=== PATIENT | female | born 1980 | race African-American/Black ===

== ENCOUNTER 2016-10-26 05:18 | Emergency (ER) | payer MEDICARE, MEDICAID ==
[2016-10-26] MEDS ORDERED: Ondansetron HCl/PF 4 MG/2 ML Vial ONE ×2 (05:49→07:36)
[2016-10-26 05:53] LABS: #Basophils 0.1 thou/uL (0.0-0.2); #Lymphocytes 0.8 thou/uL (1.20-3.40); #Monocytes 0.4 thou/uL (0.11-0.59); #Neutrophils 6.2 thou/uL (1.40-6.50); %Basophils 0.9 % (0.0-1.0); %Eosinophils 0.2 % (0.0-10.0); %Lymphocytes 10.5 % (21.0-51.0); %Monocytes 4.8 % (0.0-10.0); %Neutrophils 83.5 % (42.0-75.0); Mean Corpuscular HGB CONC 30.5 g/dL (32.0-36.0); Mean Corpuscular Hemoglobin 29.1 pg (27.0-31.0); Mean Corpuscular Volume 95.4 fl (81.0-99.0); Mean Platelet Volume 7.4 fL (7.4-10.4); Platelet Count 216 thou/uL (130-400); RBC Distribution Width 13.6 % (11.5-14.5); Red Blood Cell (RBC) Count 3.77 mill/uL (4.20-5.40); White Blood Cell (WBC) Count 7.4 thou/uL (4.8-10.8)
[2016-10-26 06:08] LABS: ALT (SGPT) 6 U/L (0-55); AST (SGOT) 8 U/L (5-34); Albumin 4.1 g/dL (3.5-5.0); Alkaline Phosphatase 77 U/L (40-150); Anion Gap 21 mmol/L (10-20); BUN (Urea Nitrogen) 25 mg/dL (7.0-18.7); Bilirubin, Total 0.6 mg/dL (0.2-1.2); Calc. Creatinine Clearance 0 mL/min (70-130); Carbon Dioxide 19 mmol/L (22-29); Chloride 106 mmol/L (98-107); Estimated GFR-MDRD 37; Globulin 3.1 g/dL (2.4-3.5); Glucose 106 mg/dL (70-105); Lipase 11 U/L (8-78); Potassium 4.4 mmol/L (3.5-5.1); Protein, Total 7.2 g/dL (6.0-8.3); Sodium 142 mmol/L (136-145)
[2016-10-26] MEDS ORDERED: Mag-Al Plus 1200 MG/1200 MG/120 MG/30 ML UDCUP ONE (07:36)
[2016-10-26] MEDS ORDERED: Sodium Chloride 0.9% 100 ML BAG ONE (07:50)
[2016-10-26] MEDS ORDERED: Piperacillin/Tazobactam 3.375 GM VIAL ONE (07:50)
[2016-10-26] MEDS ORDERED: Sodium Chloride 0.9% 1,000 ML BAG ONE (07:50)
== END 2016-10-26 08:00 | disposition home or self-care (01) ==
LOC: MADERS 05:18
DX: N39.0 Urinary tract infection, site not specified (principal); I10 Essential (primary) hypertension
CPT/HCPCS: 36415; 80053; 83690; 85025; 96365; 96375; 96376; J2405; J2543; J7050

== ENCOUNTER 2016-11-02 16:52 | Outpatient (CLI) | payer MEDICARE, MEDICAID ==
[~2016-11-02 16:52] MED LIST: Epoetin (ESRD) 20,000 UNITS/ML ONE
== END 2016-11-02 16:53 | disposition home or self-care (01) ==
LOC: MADLAB 16:52
PROVIDERS: ATTEND Internal Medicine Hematology & Oncology
DX: N39.0 Urinary tract infection, site not specified (principal); I12.9 Hypertensive chronic kidney disease with stage 1 through stage 4 chronic kidney disease, or unspecified chronic kidney disease; N18.3 Chronic kidney disease, stage 3 (moderate); E11.22 Type 2 diabetes mellitus with diabetic chronic kidney disease; D63.1 Anemia in chronic kidney disease; N20.0 Calculus of kidney; Z94.0 Kidney transplant status; Z94.83 Pancreas transplant status; Z79.899 Other long term (current) drug therapy; Z48.22 Encounter for aftercare following kidney transplant
CPT/HCPCS: Q4081

== ENCOUNTER → 2016-11-11 | Outpatient (CLI) | payer MEDICARE, MEDICAID ==
[2016-11-11 14:31] LABS: Hemoglobin 8.3 g/dL (12.0-16.0); Mean Corpuscular HGB CONC 30.7 g/dL (32.0-36.0); Mean Corpuscular Hemoglobin 30.2 pg (27.0-31.0); Mean Corpuscular Volume 98.5 fl (81.0-99.0); Mean Platelet Volume 5.9 fL (7.4-10.4); Platelet Count 286 thou/uL (130-400); Red Blood Cell (RBC) Count 2.75 mill/uL (4.20-5.40); White Blood Cell (WBC) Count 4.3 thou/uL (4.8-10.8)
== END ==
LOC: MADLAB 11:46
PROVIDERS: ATTEND Internal Medicine Hematology & Oncology
DX: N39.0 Urinary tract infection, site not specified (principal); E11.22 Type 2 diabetes mellitus with diabetic chronic kidney disease; I12.9 Hypertensive chronic kidney disease with stage 1 through stage 4 chronic kidney disease, or unspecified chronic kidney disease; N18.3 Chronic kidney disease, stage 3 (moderate); E78.5 Hyperlipidemia, unspecified; D63.1 Anemia in chronic kidney disease; R80.9 Proteinuria, unspecified; Z94.0 Kidney transplant status; Z94.83 Pancreas transplant status; Z79.899 Other long term (current) drug therapy
CPT/HCPCS: 36415; 85027

== ENCOUNTER 2017-02-19 21:29 | Emergency (ER) | payer MEDICARE, MEDICAID ==
[~2017-02-19 21:29] MED LIST changes: -Epoetin (ESRD) 20,000 UNITS/ML ONE; +Sodium Chloride 0.9% 1,000 ML BAG ONE
[2017-02-19] MEDS ORDERED: Diphenoxylate HCl/Atropine Tablet ONE (22:14)
[2017-02-19] MEDS ORDERED: Metoclopramide HCl 10 MG/2 ML VIAL ONE (22:15)
[2017-02-19] MEDS ORDERED: Ondansetron HCl/PF 4 MG/2 ML Vial ONE (22:15)
[2017-02-19] MEDS ORDERED: Ketorolac Tromethamine 30 MG/ML VIAL ONE (22:15)
[2017-02-19 22:20] LABS: Hemoglobin 12.6 g/dL (12.0-16.0); Mean Corpuscular HGB CONC 31.2 g/dL (32.0-36.0); Mean Corpuscular Hemoglobin 30.2 pg (27.0-31.0); Mean Corpuscular Volume 96.9 fl (81.0-99.0); Mean Platelet Volume 6.9 fL (7.4-10.4); Platelet Count 200 thou/uL (130-400); RBC Distribution Width 14.4 % (11.5-14.5); Red Blood Cell (RBC) Count 4.17 mill/uL (4.20-5.40); White Blood Cell (WBC) Count 6.6 thou/uL (4.8-10.8)
[2017-02-19 22:32] LABS: BHCG - Serum Negative (NEGATIVE); Pregs Control Background? CLEAR/WHITE (CLR/WHITE); Pregs Control Bar Appear? YES (CONTROL BAR)
[2017-02-19 22:34] LABS: MDiff Complete? YES; Manual Diff?? YES
[2017-02-19 22:35] LABS: Band 8 % (5-11); Lymphocytes 21 % (21-51); Monocytes 19 % (0-10); Neutrophil 50 % (42-75)
[2017-02-19 22:36] LABS: Anisocytosis SLIGHT = 6-15 cells (100X) (0-5/hpf); PLT Morphology Comment Appears Adequate
[2017-02-19 22:40] LABS: ALT (SGPT) 8 U/L (8-55); AST (SGOT) 13 U/L (5-34); Albumin 3.9 g/dL (3.5-5.0); Alkaline Phosphatase 73 U/L (40-150); Anion Gap 18 mmol/L (10-20); BUN (Urea Nitrogen) 25 mg/dL (7.0-18.7); Calc. Creatinine Clearance 0 mL/min (70-130); Calcium 9.3 mg/dL (7.8-10.44); Carbon Dioxide 19 mmol/L (22-29); Chloride 107 mmol/L (98-107); Estimated GFR-MDRD 32; Globulin 3.5 g/dL (2.4-3.5); Glucose 131 mg/dL (70-105); Potassium 4.2 mmol/L (3.5-5.1); Protein, Total 7.4 g/dL (6.0-8.3); Sodium 140 mmol/L (136-145)
--- NOTE | 2017-02-19 23:15 | RAD ---
PORTABLE CHEST ONE VIEW: Date: 02-19-17 Time: 10:09 p.m. History: Abdominal pain. FINDINGS: Comparison is made with exam of 08-12-12. The heart size is normal. The lungs are expanded without focal areas of consolidation, pneumothorax, or pleural effusions. IMPRESSION: No radiographic evidence of acute cardiopulmonary process. POS: [facility]
--- NOTE | 2017-02-19 23:29 | CT ---
CT ABDOMEN AND PELVIS WITHOUT CONTRAST: History: 36-year-old female with left lower quadrant pain. Nausea. Vomiting. Renal transplant. FINDINGS: Absence of oral and IV contrast limits the sensitivity of the exam for evaluation of solid organs an d bowel. A small hiatal hernia is present. No free air is seen. No calcified gallstones are noted. There are vascular calcifications without evidence of aneurysmal dilatation of the abdominal aorta. Some of th e vascular calcifications are likely within the renal vessels, particularly in the left. A punctate calculus in the left renal cortex may be present. A left sided transplanted kidney is seen in the left lower quadrant. There is suggestion of hydronep hrosis in the transplanted kidney. There is a small amount free fluid in the abdomen (left paracolic gutter) and pelvis. Post op changes are seen in the right lower quadrant. There is fluid in the small and large bowel. IMPRESSION: 1. Probable hydronephrosis in the transplant kidney in the left lower quadrant. 2. Small amount of free fluid in the abdomen and pelvis. 3. Fluid in the loops of small and large bowel may be due to enteritis/colitis. 4. Exam is limited due to absence of oral and IV contrast. POS: [facility]
[2017-02-20 00:39] LABS: Clarity Slightly Cloudy (Clear); Leukocyte Small (Negative); Nitrite Positive (Negative); Protein, Urine (Dipstick) > or equal to 300 mg/dL (Neg-Trace); Specific Gravity, Urine 1.015 (1.005-1.030); pH, Urine 5.5 (5.0-9.0)
[2017-02-20 00:40] LABS: Bilirubin Negative (Negative); Blood, Urine Large (Negative); Glucose, Urine (Dipstick) Negative (Negative); Urobilinogen 0.2 mg/dL (0.2-1.0)
[2017-02-20 00:45] LABS: Bacteria/HPF 1+ HPF (None Seen)
== END 2017-02-20 01:43 | disposition short-term general hospital (02) ==
LOC: MADERS 21:29
DX: N13.30 Unspecified hydronephrosis (principal); K52.9 Noninfective gastroenteritis and colitis, unspecified; H54.0 Blindness, both eyes; Z94.0 Kidney transplant status; Z94.4 Liver transplant status; I10 Essential (primary) hypertension; D64.9 Anemia, unspecified; Z79.84 Long term (current) use of oral hypoglycemic drugs
CPT/HCPCS: 71010; 74176; 80053; 81001; 82150; 83605; 83690; 84703; 85025; 87040; 87077; 87086; 87186; 96361; 96365; 96375; J1885; J1956; J2270; J2405; J2765; J7050

== ENCOUNTER 2017-04-26 10:41 | Outpatient (CLI) | payer MEDICARE, MEDICAID ==
[2017-04-26 11:13] LABS: Hemoglobin A1c 4.5 % (4.0-6.0)
[2017-04-26 11:37] LABS: ALT (SGPT) 7 U/L (8-55); AST (SGOT) 10 U/L (5-34); Albumin 3.9 g/dL (3.5-5.0); Alkaline Phosphatase 70 U/L (40-150); Anion Gap 14 mmol/L (10-20); BUN (Urea Nitrogen) 22 mg/dL (7.0-18.7); Bilirubin, Total 0.6 mg/dL (0.2-1.2); Calc. Creatinine Clearance 0 mL/min (70-130); Calcium 8.6 mg/dL (7.8-10.44); Carbon Dioxide 23 mmol/L (22-29); Chloride 106 mmol/L (98-107); Estimated GFR-MDRD 42; Globulin 3.2 g/dL (2.4-3.5); Glucose 89 mg/dL (70-105); Potassium 3.6 mmol/L (3.5-5.1); Protein, Total 7.1 g/dL (6.0-8.3); Sodium 139 mmol/L (136-145)
[2017-04-26 14:05] LABS: #Basophils 0.1 thou/uL (0.0-0.2); #Eosinphils 0.2 thou/uL (0.0-0.7); #Lymphocytes 1.7 thou/uL (1.20-3.40); #Monocytes 0.6 thou/uL (0.11-0.59); %Basophils 1.2 % (0.0-1.0); %Eosinophils 3.1 % (0.0-10.0); %Lymphocytes 25.6 % (21.0-51.0); %Monocytes 9.3 % (0.0-10.0); %Neutrophils 60.8 % (42.0-75.0); Hemoglobin 11.3 g/dL (12.0-16.0); Mean Corpuscular Hemoglobin 28.3 pg (27.0-31.0); Mean Corpuscular Volume 94.2 fl (81.0-99.0); Mean Platelet Volume 6.8 fL (7.4-10.4); Platelet Count 228 thou/uL (130-400); White Blood Cell (WBC) Count 6.6 thou/uL (4.8-10.8)
== END 2017-04-26 10:42 | disposition home or self-care (01) ==
LOC: MADLABBHPM 10:41
PROVIDERS: ATTEND Family Medicine
DX: E11.319 Type 2 diabetes mellitus with unspecified diabetic retinopathy without macular edema (principal); E11.22 Type 2 diabetes mellitus with diabetic chronic kidney disease; N18.3 Chronic kidney disease, stage 3 (moderate)
CPT/HCPCS: 36415; 80053; 83036; 85025

== ENCOUNTER 2017-05-29 12:01 | Outpatient (CLI) | payer MEDICARE ==
[2017-05-29 12:50] LABS: #Basophils 0.1 thou/uL (0.0-0.2); #Eosinphils 0.1 thou/uL (0.0-0.7); #Monocytes 0.5 thou/uL (0.11-0.59); #Neutrophils 3.1 thou/uL (1.40-6.50); %Basophils 1.1 % (0.0-1.0); %Eosinophils 2.1 % (0.0-10.0); %Lymphocytes 34.3 % (21.0-51.0); %Monocytes 9.1 % (0.0-10.0); %Neutrophils 53.4 % (42.0-75.0); Hemoglobin 11.5 g/dL (12.0-16.0); Mean Corpuscular HGB CONC 31.8 g/dL (32.0-36.0); Mean Corpuscular Hemoglobin 30.6 pg (27.0-31.0); Mean Corpuscular Volume 96.1 fl (81.0-99.0); Mean Platelet Volume 7.1 fL (7.4-10.4); Platelet Count 185 thou/uL (130-400); RBC Distribution Width 14.8 % (11.5-14.5); Red Blood Cell (RBC) Count 3.76 mill/uL (4.20-5.40); White Blood Cell (WBC) Count 5.8 thou/uL (4.8-10.8)
[2017-05-29 13:06] LABS: ALT (SGPT) 7 U/L (8-55); AST (SGOT) 7 U/L (5-34); Albumin 3.8 g/dL (3.5-5.0); Alkaline Phosphatase 61 U/L (40-150); Anion Gap 15 mmol/L (10-20); BUN (Urea Nitrogen) 27 mg/dL (7.0-18.7); Bilirubin, Total 0.3 mg/dL (0.2-1.2); Calc. Creatinine Clearance 0 mL/min (70-130); Calcium 8.2 mg/dL (7.8-10.44); Carbon Dioxide 20 mmol/L (22-29); Chloride 107 mmol/L (98-107); Estimated GFR-MDRD 43; Globulin 2.8 g/dL (2.4-3.5); Glucose 85 mg/dL (70-105); Lipase 23 U/L (8-78); Phosphorus 3.9 mg/dL (2.3-4.7); Potassium 3.6 mmol/L (3.5-5.1); Protein, Total 6.6 g/dL (6.0-8.3)
[2017-05-29 14:13] LABS: Sodium 138 mmol/L (136-145)
[2017-05-30 08:07] LABS: Bilirubin Negative (Negative); Blood, Urine Negative (Negative); Clarity Clear (Clear); Glucose, Urine (Dipstick) Negative (Negative); Leukocyte Negative (Negative); Nitrite Negative (Negative); Protein, Urine (Dipstick) Negative (Neg-Trace); Urobilinogen 0.2 mg/dL (0.2-1.0)
[2017-05-30 08:14] LABS: RBC/HPF 0-3 HPF (0-3)
[2017-05-30 14:28] LABS: Creatinine, Urine 71.24 mg/dL (47-110)
[2017-06-01 03:13] LABS: Ionized Calcium 4.5 mg/dL (4.5-5.6)
[2017-06-01 14:26] LABS: Tacrolimus 7.4 ng/mL (2.0-20.0)
== END 2017-05-29 12:02 | disposition home or self-care (01) ==
LOC: MADLAB 12:01
PROVIDERS: ATTEND Internal Medicine Nephrology
DX: Z48.22 Encounter for aftercare following kidney transplant (principal); R10.9 Unspecified abdominal pain; N39.0 Urinary tract infection, site not specified; Z94.0 Kidney transplant status; Z94.83 Pancreas transplant status; Z79.899 Other long term (current) drug therapy
CPT/HCPCS: 36415; 80053; 80197; 81001; 82150; 82330; 82570; 83690; 84100; 84156; 85025; 87086

== ENCOUNTER 2017-06-02 06:28 | Emergency (ER) | payer MEDICARE, MEDICAID ==
[2017-06-02] MEDS ORDERED: HYDROcodone/Acetaminophen 10/325 mg Tablet ONE (07:04)
[2017-06-02] MEDS ORDERED: predniSONE 20 MG TAB ONE (07:04)
== END 2017-06-02 07:15 | disposition home or self-care (01) ==
LOC: MADERS 06:28
DX: M25.571 Pain in right ankle and joints of right foot (principal); I10 Essential (primary) hypertension; D64.9 Anemia, unspecified; Z79.52 Long term (current) use of systemic steroids; Z79.899 Other long term (current) drug therapy
CPT/HCPCS: 99283; J7506

== ENCOUNTER 2017-06-06 10:17 | Outpatient (CLI) | payer MEDICARE ==
[2017-06-06 10:31] LABS: Hemoglobin 10.9 g/dL (12.0-16.0); Mean Corpuscular HGB CONC 30.3 g/dL (32.0-36.0); Mean Corpuscular Hemoglobin 29.3 pg (27.0-31.0); Mean Corpuscular Volume 96.8 fl (81.0-99.0); Mean Platelet Volume 7.7 fL (7.4-10.4); Platelet Count 162 thou/uL (130-400); RBC Distribution Width 14.4 % (11.5-14.5); Red Blood Cell (RBC) Count 3.73 mill/uL (4.20-5.40); White Blood Cell (WBC) Count 6.6 thou/uL (4.8-10.8)
== END 2017-06-06 10:18 | disposition home or self-care (01) ==
LOC: MADLAB 10:17
PROVIDERS: ATTEND Internal Medicine Hematology & Oncology
DX: D50.9 Iron deficiency anemia, unspecified (principal); N18.3 Chronic kidney disease, stage 3 (moderate); D63.1 Anemia in chronic kidney disease
CPT/HCPCS: 36415; 85027

== ENCOUNTER 2017-06-15 14:11 | Emergency (ER) | payer MEDICARE, MEDICAID ==
[2017-06-15 14:52] LABS: #Basophils 0.1 thou/uL (0.0-0.2); #Lymphocytes 0.9 thou/uL (1.20-3.40); #Monocytes 0.4 thou/uL (0.11-0.59); #Neutrophils 15.6 thou/uL (1.40-6.50); %Basophils 0.5 % (0.0-1.0); %Eosinophils 0.1 % (0.0-10.0); %Lymphocytes 5.2 % (21.0-51.0); %Monocytes 2.6 % (0.0-10.0); %Neutrophils 91.6 % (42.0-75.0); Hemoglobin 11.9 g/dL (12.0-16.0); Mean Corpuscular HGB CONC 30.9 g/dL (32.0-36.0); Mean Corpuscular Hemoglobin 29.3 pg (27.0-31.0); Mean Corpuscular Volume 94.9 fl (81.0-99.0); Platelet Count 210 thou/uL (130-400); RBC Distribution Width 13.7 % (11.5-14.5); Red Blood Cell (RBC) Count 4.08 mill/uL (4.20-5.40)
[2017-06-15 15:06] LABS: Bilirubin Small (Negative); Blood, Urine Small (Negative); Glucose, Urine (Dipstick) Negative (Negative); Leukocyte Negative (Negative); Nitrite Negative (Negative); Protein, Urine (Dipstick) > or equal to 300 mg/dL (Neg-Trace); Urobilinogen 0.2 mg/dL (0.2-1.0); pH, Urine 5.5 (5.0-9.0)
[2017-06-15 15:07] LABS: Clarity Hazy (Clear); Specific Gravity, Urine 1.015 (1.002-1.036)
[2017-06-15] MEDS ORDERED: Ondansetron HCl/PF 4 MG/2 ML Vial ONE (15:08)
[2017-06-15] MEDS ORDERED: Morphine 10 MG/ML VIAL ONE (15:08)
[2017-06-15 15:09] LABS: ALT (SGPT) 8 U/L (8-55); AST (SGOT) 9 U/L (5-34); Albumin 4.5 g/dL (3.5-5.0); Alkaline Phosphatase 70 U/L (40-150); Anion Gap 21 mmol/L (10-20); BUN (Urea Nitrogen) 23 mg/dL (7.0-18.7); Bilirubin, Total 0.5 mg/dL (0.2-1.2); Calc. Creatinine Clearance 0 mL/min (70-130); Calcium 8.8 mg/dL (7.8-10.44); Carbon Dioxide 19 mmol/L (22-29); Chloride 108 mmol/L (98-107); Estimated GFR-MDRD 38; Globulin 3.5 g/dL (2.4-3.5); Glucose 153 mg/dL (70-105); Lipase 8 U/L (8-78); Potassium 3.8 mmol/L (3.5-5.1); Sodium 144 mmol/L (136-145)
[2017-06-15 15:16] LABS: Bacteria/HPF Rare-Few HPF (None Seen); Crystals/HPF 2+ AMORPH URATES HPF (Negative); Hyaline Casts/LPF 4-6 HYALINE CAST LPF (0-3 Hyaline); RBC/HPF 0-3 HPF (0-3); WBC/HPF None Seen HPF (0-3)
--- NOTE | 2017-06-15 17:04 | CT ---
CT OF THE ABDOMEN AND PELVIS WITHOUT CONTRAST: Date: 06/15/17 HISTORY: Left-sided abdominal and flank pain for 3 days. History of renal transplant. COMPARISON: 02/19/17. TECHNIQUE: Multiple contiguous axial images were obtained in a CT of the abdomen and pelvis without contrast. C oronal reformats were performed. FINDINGS: The [place] kidneys are small and atrophic. Surgical clips are seen below the right kidney adjacent t o the right colon. There is a transplant kidney in the pelvis. This transplant kidney appears unchan ged in appearance compared to the prior examination. There is a small amount of fluid surrounding th e transplant kidney and in the left paracolic gutter. No free air is seen in the abdomen or pelvis. The transplanted kidney measures 13.5 cm in length. The liver, gallbladder, adrenal glands, spleen, and pancreas are unremarkable. No abdominal or pelvi c lymphadenopathy seen. The reproductive organs are grossly unremarkable. The osseous structures, vi sualized inferior thorax, and abdominal wall soft tissues are unremarkable. IMPRESSION: There is fluid surrounding the transplanted kidney and in the left paracolic gutter. There is no justice dence of hydronephrosis or obstruction, but acute rejection of the kidney is a possible consideratio n. However, this has not changed significantly compared to the prior examination. POS: [facility]
[2017-06-15] MEDS ORDERED: metroNIDAZOLE 250 MG TAB ONE (17:22)
[2017-06-15] MEDS ORDERED: Ciprofloxacin 500 MG TAB ONE (17:22)
== END 2017-06-15 18:50 | disposition home or self-care (01) ==
LOC: MADERS 14:11
DX: K57.92 Diverticulitis of intestine, part unspecified, without perforation or abscess without bleeding (principal); E86.0 Dehydration; D64.9 Anemia, unspecified; I12.9 Hypertensive chronic kidney disease with stage 1 through stage 4 chronic kidney disease, or unspecified chronic kidney disease; N18.9 Chronic kidney disease, unspecified; H54.7 Unspecified visual loss; Z94.0 Kidney transplant status; Z79.52 Long term (current) use of systemic steroids; Z79.899 Other long term (current) drug therapy
CPT/HCPCS: 36415; 51701; 74176; 80053; 81001; 82150; 83605; 83690; 83880; 85025; 87086; 96361; 96374; 96375; A4353; J2270; J2405; J7050

== ENCOUNTER 2017-07-18 07:04 | Emergency (ER) | payer MEDICARE, MEDICAID ==
[2017-07-18 07:30] LABS: Bilirubin Negative (Negative); Blood, Urine Negative (Negative); Clarity Clear (Clear); Glucose, Urine (Dipstick) Negative (Negative); Leukocyte Negative (Negative); Nitrite Negative (Negative); Protein, Urine (Dipstick) Negative (Neg-Trace); Specific Gravity, Urine 1.015 (1.005-1.030); Urobilinogen 0.2 mg/dL (0.2-1.0)
== END 2017-07-18 07:53 | disposition home or self-care (01) ==
LOC: MADERS 07:04
DX: R30.0 Dysuria (principal); I10 Essential (primary) hypertension; D64.9 Anemia, unspecified; Z79.891 Long term (current) use of opiate analgesic; Z79.899 Other long term (current) drug therapy
CPT/HCPCS: 81003; 85027; 87086; Q4081; 36415; 99283

== ENCOUNTER 2017-07-30 07:50 | Emergency (ER) | payer MEDICARE, OTHER ==
[2017-07-30] MEDS ORDERED: Loperamide HCl 2 MG CAP ONE (08:24)
== END 2017-07-30 08:30 | disposition home or self-care (01) ==
LOC: MADERS 07:50
DX: K52.9 Noninfective gastroenteritis and colitis, unspecified (principal); I10 Essential (primary) hypertension; D64.9 Anemia, unspecified; H54.7 Unspecified visual loss; Z79.52 Long term (current) use of systemic steroids; Z79.899 Other long term (current) drug therapy
CPT/HCPCS: 99283

== ENCOUNTER 2017-09-18 20:48 | Emergency (ER) | payer MEDICARE, MEDICAID ==
[2017-09-18] MEDS ORDERED: Cyclobenzaprine 10 MG TAB ONE (21:37)
== END 2017-09-18 21:40 | disposition home or self-care (01) ==
LOC: MADERS 20:48
DX: M79.1 Myalgia (principal); D64.9 Anemia, unspecified; I10 Essential (primary) hypertension
CPT/HCPCS: 99283

== ENCOUNTER 2017-10-20 07:27 | Emergency (ER) | payer MEDICARE, MEDICAID ==
[2017-10-20] MEDS ORDERED: Epoetin (ESRD) 20,000 UNITS/ML ONE (08:43)
== END 2017-10-20 07:50 | disposition home or self-care (01) ==
LOC: MADERS 07:27
DX: H92.01 Otalgia, right ear (principal); H54.8 Legal blindness, as defined in USA; I10 Essential (primary) hypertension; Z94.0 Kidney transplant status; Z94.83 Pancreas transplant status
CPT/HCPCS: 99282; Q4081; J0885

== ENCOUNTER 2017-11-18 07:50 | Emergency (ER) | payer MEDICARE, OTHER ==
[2017-11-18] MEDS ORDERED: Epoetin (ESRD) 20,000 UNITS/ML ONE (08:37)
[2017-11-18] MEDS ORDERED: Azithromycin 250 MG TAB ONE (09:03)
--- NOTE | 2017-11-18 09:16 | RAD ---
PA AND LATERAL OF THE CHEST: INDICATION: History of cough. COMPARISON: Prior exam dated 02/19/17. IMPRESSION: No evidence of pneumonia. COMMENTS: No focal consolidation, pleural effusion, or pneumothorax evident. Cardiothymic silhouette is within normal limits. POS: [facility]
[2017-11-18 16:12] LABS: HBSAg Index 0.19 S/CO (0-0.99); HIV (1/2) Antibody/Antigen Non-Reactive (NonReactive); HIV 1/2 INDEX 0.13 S/CO (<1.00); Hep B Surf Ag Non-Reactive S/CO (NonReactive); Hep C IgG Ab Non-Reactive (NonReactive); Hep C Index 0.29 S/CO (0-0.79)
== END 2017-11-18 09:10 | disposition home or self-care (01) ==
LOC: MADERS 07:50
DX: J01.90 Acute sinusitis, unspecified (principal); I10 Essential (primary) hypertension; D64.9 Anemia, unspecified; Z79.899 Other long term (current) drug therapy
CPT/HCPCS: 36415; 71046; 86803; 87340; 87389; 87804; Q4081

== ENCOUNTER 2017-12-25 07:44 | Emergency (ER) | payer MEDICARE, MEDICAID ==
[2017-12-25 08:10] LABS: Bilirubin Negative (Negative); Blood, Urine Negative (Negative); Clarity Clear (Clear); Glucose, Urine (Dipstick) Negative (Negative); Leukocyte Negative (Negative); Nitrite Negative (Negative); Protein, Urine (Dipstick) Trace mg/dL (Neg-Trace); Specific Gravity, Urine 1.015 (1.005-1.030); Urobilinogen 0.2 mg/dL (0.2-1.0); pH, Urine 5.5 (5.0-9.0)
[2017-12-25 08:11] LABS: Pregnancy Test - Urine (BHCG) Negative (Negative); Pregu Control Background? CLEAR/WHITE (CLR/WHITE); Pregu Control Bar Appear? YES (CONTROL BAR); Specific Gravity 1.015 (1.002-1.036)
[2017-12-25 08:13] LABS: Hemoglobin 9.2 g/dL (12.0-16.0); Mean Corpuscular HGB CONC 30.1 g/dL (32.0-36.0); Mean Corpuscular Hemoglobin 28.4 pg (27.0-31.0); Mean Corpuscular Volume 94.2 fl (81.0-99.0); Mean Platelet Volume 6.1 fL (7.4-10.4); Platelet Count 256 thou/uL (130-400); Red Blood Cell (RBC) Count 3.23 mill/uL (4.20-5.40); White Blood Cell (WBC) Count 6.3 thou/uL (4.8-10.8)
[2017-12-25] MEDS ORDERED: Epoetin (ESRD) 20,000 UNITS/ML ONE (08:39)
== END 2017-12-25 08:30 | disposition home or self-care (01) ==
LOC: MADERS 07:44
DX: M54.9 Dorsalgia, unspecified (principal); R10.32 Left lower quadrant pain; I10 Essential (primary) hypertension; H54.7 Unspecified visual loss; D64.9 Anemia, unspecified; Z79.52 Long term (current) use of systemic steroids; Z79.899 Other long term (current) drug therapy
CPT/HCPCS: 36415; 81003; 81025; 85027; 99283; Q4081

== ENCOUNTER 2018-02-12 07:34 | Outpatient (CLI) | payer MEDICARE, MEDICAID ==
[2018-02-12 09:32] LABS: #Monocytes 0.5 thou/uL (0.11-0.59); #Neutrophils 4.2 thou/uL (1.40-6.50); %Basophils 0.8 % (0.0-1.0); %Eosinophils 0.5 % (0.0-10.0); %Lymphocytes 16.5 % (21.0-51.0); %Monocytes 9.3 % (0.0-10.0); %Neutrophils 72.9 % (42.0-75.0); Hemoglobin 8.6 g/dL (12.0-16.0); Mean Corpuscular HGB CONC 29.8 g/dL (32.0-36.0); Mean Corpuscular Hemoglobin 29.2 pg (27.0-31.0); Mean Platelet Volume 6.5 fL (7.4-10.4); Platelet Count 263 thou/uL (130-400); RBC Distribution Width 16.6 % (11.5-14.5); Red Blood Cell (RBC) Count 2.96 mill/uL (4.20-5.40); White Blood Cell (WBC) Count 5.8 thou/uL (4.8-10.8)
[2018-02-12 09:49] LABS: ALT (SGPT) 13 U/L (8-55); AST (SGOT) 9 U/L (5-34); Albumin 3.7 g/dL (3.5-5.0); Alkaline Phosphatase 50 U/L (40-150); Anion Gap 15 mmol/L (10-20); BUN (Urea Nitrogen) 18 mg/dL (7.0-18.7); Bilirubin, Total 0.4 mg/dL (0.2-1.2); Calc. Creatinine Clearance 0 mL/min (70-130); Calcium 7.3 mg/dL (7.8-10.44); Carbon Dioxide 20 mmol/L (22-29); Chloride 108 mmol/L (98-107); Estimated GFR-MDRD 41; Globulin 2.4 g/dL (2.4-3.5); Glucose 87 mg/dL (70-105); Lipase 15 U/L (8-78); Phosphorus 4.7 mg/dL (2.3-4.7); Protein, Total 6.1 g/dL (6.0-8.3); Sodium 139 mmol/L (136-145)
[2018-02-12 17:48] LABS: Bilirubin Negative (Negative); Blood, Urine Negative (Negative); Clarity Clear (Clear); Glucose, Urine (Dipstick) Negative (Negative); Leukocyte Negative (Negative); Nitrite Negative (Negative); Protein, Urine (Dipstick) Negative (Neg-Trace); Specific Gravity, Urine 1.015 (1.005-1.030); Urobilinogen 0.2 mg/dL (0.2-1.0)
[2018-02-12 17:58] LABS: Bacteria/HPF Rare-Few HPF (None Seen); RBC/HPF None Seen HPF (0-3)
[2018-02-13 12:03] LABS: Creatinine, Urine 72.06 mg/dL (47-110); Protein, Urine Random Quant Less than 10 mg/dL
== END 2018-02-12 07:35 | disposition home or self-care (01) ==
LOC: MADLAB 07:34
PROVIDERS: ATTEND Internal Medicine Nephrology
DX: Z48.22 Encounter for aftercare following kidney transplant (principal); N18.3 Chronic kidney disease, stage 3 (moderate); D50.8 Other iron deficiency anemias; D63.1 Anemia in chronic kidney disease; Z94.0 Kidney transplant status; Z94.83 Pancreas transplant status; Z79.899 Other long term (current) drug therapy
CPT/HCPCS: 36415; 80053; 80197; 81001; 82150; 82330; 82570; 83690; 84100; 84156; 85025; 87086; 87497; 87799

== ENCOUNTER 2018-04-20 07:27 | Outpatient (CLI) | payer MEDICARE, MEDICAID ==
[2018-04-20 07:56] LABS: #Basophils 0.1 thou/uL (0.0-0.2); #Eosinphils 0.2 thou/uL (0.0-0.7); #Lymphocytes 1.3 thou/uL (1.20-3.40); #Monocytes 0.4 thou/uL (0.11-0.59); %Basophils 1.9 % (0.0-1.0); %Eosinophils 4.2 % (0.0-10.0); %Lymphocytes 26.2 % (21.0-51.0); %Monocytes 8.6 % (0.0-10.0); Hemoglobin 10.7 g/dL (12.0-16.0); Mean Corpuscular HGB CONC 32.3 g/dL (32.0-36.0); Mean Corpuscular Hemoglobin 30.7 pg (27.0-31.0); Mean Corpuscular Volume 94.9 fL (78.0-98.0); Mean Platelet Volume 8.3 fL (7.4-10.4); Platelet Count 152 thou/uL (130-400); RBC Distribution Width 13.4 % (11.5-14.5); Red Blood Cell (RBC) Count 3.48 mill/uL (4.20-5.40); White Blood Cell (WBC) Count 5.1 thou/uL (4.8-10.8)
[2018-04-20 08:18] LABS: ALT (SGPT) 7 U/L (8-55); AST (SGOT) 9 U/L (5-34); Albumin 3.7 g/dL (3.5-5.0); Alkaline Phosphatase 45 U/L (40-150); Anion Gap 11 mmol/L (10-20); BUN (Urea Nitrogen) 14 mg/dL (7.0-18.7); Bilirubin, Total 0.3 mg/dL (0.2-1.2); Calc. Creatinine Clearance 0 mL/min (70-130); Calcium 7.7 mg/dL (7.8-10.44); Carbon Dioxide 21 mmol/L (22-29); Cardiac Risk 2.6 (Less than 4.5); Chloride 112 mmol/L (98-107); Cholesterol 137 mg/dl (< 200 Desired); Estimated GFR-MDRD 43; Globulin 2.4 g/dL (2.4-3.5); Glucose 95 mg/dL (70-105); HDL Cholesterol 52 mg/dL (>60 Neg Risk); LDL Cholesterol, Calculated 71 mg/dL; Potassium 3.6 mmol/L (3.5-5.1); Protein, Total 6.1 g/dL (6.0-8.3); Sodium 140 mmol/L (136-145); Triglycerides 72 mg/dL (Less than 150)
[2018-04-20 14:05] LABS: HIV (1/2) Antibody/Antigen Non-Reactive (NonReactive); HIV 1/2 INDEX 0.06 S/CO (<1.00)
== END 2018-04-20 07:28 ==
LOC: MADLABBHPM 07:27
PROVIDERS: ATTEND Family Medicine
DX: Z01.419 Encounter for gynecological examination (general) (routine) without abnormal findings (principal); E11.22 Type 2 diabetes mellitus with diabetic chronic kidney disease; N18.9 Chronic kidney disease, unspecified; D63.1 Anemia in chronic kidney disease; E78.00 Pure hypercholesterolemia, unspecified; E11.319 Type 2 diabetes mellitus with unspecified diabetic retinopathy without macular edema
CPT/HCPCS: 36415; 80053; 80061; 83036; 85025; 87389

== ENCOUNTER 2018-04-30 18:11 | Emergency (ER) | payer MEDICARE, MEDICAID ==
[2018-04-30] MEDS ORDERED: Lorazepam 2 MG/ML VIAL ONE (18:45)
[2018-04-30] MEDS ORDERED: Famotidine In NaCl 20 mg/50 ml Premix Bag ONE (18:45)
[2018-04-30] MEDS ORDERED: Ondansetron HCl/PF 4 MG/2 ML Vial ONE (18:45)
[2018-04-30] MEDS ORDERED: Metoclopramide HCl 10 MG/2 ML VIAL ONE (18:45)
[2018-04-30 18:53] LABS: #Basophils 0.1 thou/uL (0.0-0.2); #Eosinphils 0.1 thou/uL (0.0-0.7); #Lymphocytes 1.1 thou/uL (1.20-3.40); #Monocytes 0.6 thou/uL (0.11-0.59); #Neutrophils 6.4 thou/uL (1.40-6.50); %Basophils 1.4 % (0.0-1.0); %Eosinophils 0.8 % (0.0-10.0); %Lymphocytes 13.5 % (21.0-51.0); %Monocytes 7.6 % (0.0-10.0); %Neutrophils 76.7 % (42.0-75.0); Hemoglobin 13.3 g/dL (12.0-16.0); Mean Corpuscular HGB CONC 29.9 g/dL (32.0-36.0); Mean Platelet Volume 7.6 fL (7.4-10.4); Platelet Count 265 thou/uL (130-400); RBC Distribution Width 14.6 % (11.5-14.5); Red Blood Cell (RBC) Count 4.59 mill/uL (4.20-5.40); White Blood Cell (WBC) Count 8.3 thou/uL (4.8-10.8)
[2018-04-30 19:02] LABS: Anion Gap 20 mmol/L (10-20); BUN (Urea Nitrogen) 17 mg/dL (7.0-18.7); Calc. Creatinine Clearance 0 mL/min (70-130); Calcium 9.3 mg/dL (7.8-10.44); Carbon Dioxide 17 mmol/L (22-29); Chloride 111 mmol/L (98-107); Estimated GFR-MDRD 38; Glucose 105 mg/dL (70-105); Potassium 4.1 mmol/L (3.5-5.1); Sodium 144 mmol/L (136-145)
[2018-04-30] MEDS ORDERED: Levofloxacin 500 mg/D5W 100 ml Premix Bag ONE (19:42)
--- NOTE | 2018-04-30 20:08 | RAD ---
CHEST ONE VIEW: Comparison: 02-19-17, 11-18-17 History: Cough. FINDINGS: Normal cardiac silhouette. The lungs and pleural spaces are clear. No pneumothorax or osseous abnorma lities. IMPRESSION: No acute cardiopulmonary process. POS: [facility]
== END 2018-04-30 22:15 | disposition home or self-care (01) ==
LOC: MADERS 18:11
DX: E86.0 Dehydration (principal); D64.9 Anemia, unspecified; I10 Essential (primary) hypertension
CPT/HCPCS: 36415; 71045; 80048; 83605; 85025; 87040; 96365; 96367; 96375; J1956; J2060; J2405; J2765; J3370; J7050

== ENCOUNTER 2018-05-02 13:10 | Emergency (ER) | payer MEDICARE, OTHER, MEDICAID ==
[~2018-05-02 13:10] MED LIST changes: +Sodium Chloride 0.9% 100 ML BAG ONE
[2018-05-02] MEDS ORDERED: Acetaminophen 325 MG TAB ONE ×3 (13:27→19:13)
[2018-05-02 13:50] LABS: #Basophils 0.1 thou/uL (0.0-0.2); #Eosinphils 0.1 thou/uL (0.0-0.7); #Lymphocytes 1.1 thou/uL (1.20-3.40); #Monocytes 0.8 thou/uL (0.11-0.59); #Neutrophils 5.1 thou/uL (1.40-6.50); %Basophils 1.4 % (0.0-1.0); %Eosinophils 1.6 % (0.0-10.0); %Lymphocytes 15.1 % (21.0-51.0); %Monocytes 10.5 % (0.0-10.0); %Neutrophils 71.5 % (42.0-75.0); Hemoglobin 12.3 g/dL (12.0-16.0); Mean Corpuscular HGB CONC 31.1 g/dL (32.0-36.0); Mean Corpuscular Hemoglobin 30.1 pg (27.0-31.0); Mean Corpuscular Volume 96.9 fL (78.0-98.0); Mean Platelet Volume 7.2 fL (7.4-10.4); Platelet Count 231 thou/uL (130-400); RBC Distribution Width 14.9 % (11.5-14.5); Red Blood Cell (RBC) Count 4.07 mill/uL (4.20-5.40); White Blood Cell (WBC) Count 7.1 thou/uL (4.8-10.8)
[2018-05-02 13:56] LABS: ALT (SGPT) 7 U/L (8-55); AST (SGOT) 11 U/L (5-34); Alkaline Phosphatase 58 U/L (40-150); Anion Gap 11 mmol/L (10-20); BUN (Urea Nitrogen) 14 mg/dL (7.0-18.7); Bilirubin, Total 0.7 mg/dL (0.2-1.2); CK (CPK) 37 U/L (29-168); Calc. Creatinine Clearance 0 mL/min (70-130); Calcium 8.1 mg/dL (7.8-10.44); Carbon Dioxide 21 mmol/L (22-29); Chloride 117 mmol/L (98-107); Estimated GFR-MDRD 39; Globulin 2.8 g/dL (2.4-3.5); Glucose 114 mg/dL (70-105); Lipase 19 U/L (8-78); Potassium 3.7 mmol/L (3.5-5.1); Protein, Total 6.8 g/dL (6.0-8.3); Sodium 145 mmol/L (136-145)
[2018-05-02 17:00] LABS: Bilirubin Negative (Negative); Blood, Urine Trace (Negative); Clarity Hazy (Clear); Glucose, Urine (Dipstick) Negative (Negative); Leukocyte Negative (Negative); Nitrite Negative (Negative); Protein, Urine (Dipstick) 100 mg/dL (Neg-Trace); Urobilinogen 0.2 mg/dL (0.2-1.0); pH, Urine 5.5 (5.0-9.0)
[2018-05-02 17:01] LABS: Pregnancy Test - Urine (BHCG) Negative (Negative); Pregu Control Background? CLEAR/WHITE (CLR/WHITE); Pregu Control Bar Appear? YES (CONTROL BAR)
[2018-05-02 17:07] LABS: RBC/HPF 0-3 HPF (0-3)
[2018-05-02 17:08] LABS: Bacteria/HPF Rare-Few HPF (None Seen); WBC/HPF 0-3 HPF (0-3); Yeast-All Forms 1+ HPF (None Seen)
[2018-05-02] MEDS ORDERED: Ondansetron HCl/PF 4 MG/2 ML Vial ONE (17:17)
[2018-05-02] MEDS ORDERED: hydrALAZINE 20 MG/ML VIAL ONE (17:43)
[2018-05-02] MEDS ORDERED: Nitroglycerin 2% Ointment 1 INCH/1 GM Packet ONE (19:12)
[2018-05-02] MEDS ORDERED: Labetalol HCl 100 MG/20 ML VIAL ONE (19:13)
[2018-05-02] MEDS ORDERED: Morphine 4 MG/ML VIAL ONE (19:19)
[2018-05-02] MEDS ORDERED: Piperacillin/Tazobactam 3.375 GM VIAL ONE (19:31)
== END 2018-05-02 20:21 | disposition short-term general hospital (02) ==
LOC: MADERS 13:10
DX: R11.2 Nausea with vomiting, unspecified (principal); R50.9 Fever, unspecified; I10 Essential (primary) hypertension; Z79.899 Other long term (current) drug therapy; N28.9 Disorder of kidney and ureter, unspecified; Z94.0 Kidney transplant status
CPT/HCPCS: 36415; 80053; 81003; 81015; 81025; 82550; 83605; 83690; 85025; 87040; 87086; 93005; 96361; 96365; 96367; 96375; J0360; J2270; J2405; J2543; J3370; J7050

== ENCOUNTER 2018-06-24 05:36 | Emergency (ER) | payer MEDICARE, MEDICAID ==
[2018-06-24] MEDS ORDERED: Diphenoxylate HCl/Atropine Tablet ONE (06:01)
== END 2018-06-24 06:15 | disposition home or self-care (01) ==
LOC: MADERS 05:36
DX: R19.7 Diarrhea, unspecified (principal); I10 Essential (primary) hypertension; D64.9 Anemia, unspecified; Z79.899 Other long term (current) drug therapy
CPT/HCPCS: 99283

== ENCOUNTER 2018-11-28 06:46 | Outpatient (CLI) | payer MEDICARE, MEDICAID ==
[2018-11-28 07:02] LABS: Hemoglobin 9.3 g/dL (12.0-16.0)
[2018-11-29] MEDS ORDERED: Epoetin (ESRD) 20,000 UNITS/ML ONE (07:07)
== END 2018-11-28 06:47 | disposition home or self-care (01) ==
LOC: MADLAB 06:46
PROVIDERS: ATTEND Internal Medicine Hematology & Oncology
DX: Z48.288 Encounter for aftercare following multiple organ transplant (principal); N18.3 Chronic kidney disease, stage 3 (moderate); D63.1 Anemia in chronic kidney disease; D50.8 Other iron deficiency anemias; N39.0 Urinary tract infection, site not specified; Z79.899 Other long term (current) drug therapy; Z94.0 Kidney transplant status; Z94.83 Pancreas transplant status
CPT/HCPCS: 36415; 85018

== ENCOUNTER 2018-12-05 06:39 | Outpatient (CLI) | payer MEDICARE, MEDICAID ==
[2018-12-05 06:50] LABS: Hemoglobin 9.2 g/dL (12.0-16.0)
== END 2018-12-05 06:40 | disposition home or self-care (01) ==
LOC: MADLAB 06:39
PROVIDERS: ATTEND Internal Medicine Hematology & Oncology
DX: N18.3 Chronic kidney disease, stage 3 (moderate) (principal); D63.1 Anemia in chronic kidney disease; D50.8 Other iron deficiency anemias
CPT/HCPCS: 36415; 85014; 85018; 96372; Q5105; Q5106

== ENCOUNTER 2018-12-19 06:44 | Outpatient (CLI) | payer MEDICARE, MEDICAID ==
[2018-12-19 06:57] LABS: Hemoglobin 10.7 g/dL (12.0-16.0); Mean Corpuscular HGB CONC 29.4 g/dL (32.0-36.0); Mean Corpuscular Hemoglobin 29.1 pg (27.0-31.0); Mean Corpuscular Volume 98.9 fL (78.0-98.0); Mean Platelet Volume 5.5 fL (7.4-10.4); Platelet Count 258 thou/uL (130-400); RBC Distribution Width 17.3 % (11.5-14.5); Red Blood Cell (RBC) Count 3.67 mill/uL (4.20-5.40); White Blood Cell (WBC) Count 7.8 thou/uL (4.8-10.8)
== END 2018-12-19 06:45 | disposition home or self-care (01) ==
LOC: MADLAB 06:44
PROVIDERS: ATTEND Internal Medicine Hematology & Oncology
DX: N18.3 Chronic kidney disease, stage 3 (moderate) (principal); D63.1 Anemia in chronic kidney disease; D50.8 Other iron deficiency anemias; Z94.0 Kidney transplant status; Z94.83 Pancreas transplant status
CPT/HCPCS: 36415; 85027

== ENCOUNTER → 2019-06-05 | Day surgery (SDC) | payer MEDICARE, MEDICAID ==
[~2019-06-05] MED LIST changes: +EPOETIN ALFA-EPBX (ESRD) 40,000 UNIT/ML VIAL ONE; -Sodium Chloride 0.9% 1,000 ML BAG ONE; -Sodium Chloride 0.9% 100 ML BAG ONE
[2019-06-05 08:07] LABS: Hemoglobin 8.5 g/dL (12.0-16.0); Mean Corpuscular HGB CONC 30.9 g/dL (32.0-36.0); Mean Corpuscular Hemoglobin 29.6 pg (27.0-31.0); Mean Platelet Volume 5.7 fL (7.4-10.4); Platelet Count 132 thou/uL (130-400); RBC Distribution Width 13.5 % (11.5-14.5); Red Blood Cell (RBC) Count 2.88 mill/uL (4.20-5.40); White Blood Cell (WBC) Count 6.9 thou/uL (4.8-10.8)
== END ==
LOC: MADER/OP 07:59
PROVIDERS: ATTEND Internal Medicine Hematology & Oncology
DX: D50.8 Other iron deficiency anemias (principal); N18.3 Chronic kidney disease, stage 3 (moderate); D63.1 Anemia in chronic kidney disease; Z88.1 Allergy status to other antibiotic agents; Z94.0 Kidney transplant status
CPT/HCPCS: 36415; 85027; Q5105

== ENCOUNTER → 2019-07-23 | Day surgery (SDC) | payer MEDICARE, MEDICAID ==
[2019-07-23 07:48] LABS: Hemoglobin 9.2 g/dL (12.0-16.0); Mean Corpuscular HGB CONC 30.7 g/dL (32.0-36.0); Mean Corpuscular Hemoglobin 29.3 pg (27.0-31.0); Mean Corpuscular Volume 95.4 fL (78.0-98.0); Mean Platelet Volume 7.1 fL (7.4-10.4); Platelet Count 177 thou/uL (130-400); Red Blood Cell (RBC) Count 3.13 mill/uL (4.20-5.40); White Blood Cell (WBC) Count 5.4 thou/uL (4.8-10.8)
== END ==
LOC: MADER/OP 07:23
PROVIDERS: ATTEND Internal Medicine Hematology & Oncology
DX: N18.3 Chronic kidney disease, stage 3 (moderate) (principal); D63.1 Anemia in chronic kidney disease; D50.8 Other iron deficiency anemias; Z88.1 Allergy status to other antibiotic agents
CPT/HCPCS: 36415; 85027; Q5105

== ENCOUNTER → 2019-08-27 | Day surgery (SDC) | payer MEDICARE, MEDICAID ==
[2019-08-27 07:57] LABS: Hemoglobin 10.3 g/dL (12.0-16.0); Mean Corpuscular Hemoglobin 28.4 pg (27.0-31.0); Mean Corpuscular Volume 94.8 fL (78.0-98.0); Mean Platelet Volume 8.3 fL (7.4-10.4); Platelet Count 197 thou/uL (130-400); RBC Distribution Width 12.8 % (11.5-14.5); Red Blood Cell (RBC) Count 3.62 mill/uL (4.20-5.40); White Blood Cell (WBC) Count 8.4 thou/uL (4.8-10.8)
[2019-08-27 08:02] LABS: Mean Corpuscular HGB CONC 29.9 g/dL (32.0-36.0)
== END ==
LOC: MADER/OP 07:22
PROVIDERS: ATTEND Internal Medicine Hematology & Oncology
DX: N18.3 Chronic kidney disease, stage 3 (moderate) (principal); D63.1 Anemia in chronic kidney disease; D50.8 Other iron deficiency anemias; Z88.1 Allergy status to other antibiotic agents
CPT/HCPCS: 36415; 85027

== ENCOUNTER → 2019-09-30 | Day surgery (SDC) | payer MEDICARE, MEDICAID ==
[2019-09-30 07:21] LABS: Hemoglobin 8.7 g/dL (12.0-16.0); Mean Corpuscular Hemoglobin 27.8 pg (27.0-31.0); Mean Corpuscular Volume 92.9 fL (78.0-98.0); Mean Platelet Volume 6.1 fL (7.4-10.4); Platelet Count 204 thou/uL (130-400); RBC Distribution Width 12.7 % (11.5-14.5); Red Blood Cell (RBC) Count 3.12 mill/uL (4.20-5.40); White Blood Cell (WBC) Count 6.5 thou/uL (4.8-10.8)
== END ==
LOC: MADER/OP 07:12
PROVIDERS: ATTEND Internal Medicine Hematology & Oncology
DX: N18.3 Chronic kidney disease, stage 3 (moderate) (principal); D63.1 Anemia in chronic kidney disease; D50.8 Other iron deficiency anemias; Z88.1 Allergy status to other antibiotic agents
CPT/HCPCS: 36415; 85027; Q5105

== ENCOUNTER 2019-10-13 19:26 | Emergency (ER) | payer MEDICARE, MEDICAID, OTHER ==
[2019-10-13] MEDS ORDERED: Ondansetron PF 4 MG/2 ML Vial ONE (20:07)
[2019-10-13] MEDS ORDERED: Sodium Chloride 0.9% 1,000 ML ONE ×2 (20:07→21:15)
[2019-10-13 20:24] LABS: Hemoglobin 7.3 g/dL (12.0-16.0); Mean Corpuscular HGB CONC 30.2 g/dL (32.0-36.0); Mean Corpuscular Hemoglobin 28.7 pg (27.0-31.0); Mean Platelet Volume 6.3 fL (7.4-10.4); Platelet Count 126 thou/uL (130-400); RBC Distribution Width 14.2 % (11.5-14.5); Red Blood Cell (RBC) Count 2.53 mill/uL (4.20-5.40); White Blood Cell (WBC) Count 21.7 thou/uL (4.8-10.8)
[2019-10-13 20:25] LABS: Manual Diff?? YES
[2019-10-13 20:33] LABS: MDiff Complete? YES
[2019-10-13] MEDS ORDERED: Acetaminophen 500 MG TAB ONE (20:34)
[2019-10-13 20:35] LABS: Band 9 % (5-11); Neutrophil 88 % (42-75)
[2019-10-13 20:36] LABS: Hypochromia SLIGHT = 6-15 cells (100X) (0-5/hpf); Lymphocytes 1 % (21-51); Monocytes 2 % (0-10)
[2019-10-13 20:37] LABS: Target Cells MODERATE= 6-15 cells (100X) (0-1/hpf)
[2019-10-13 20:43] LABS: BUN (Urea Nitrogen) 42 mg/dL (7.0-18.7); Carbon Dioxide 17 mmol/L (22-29); Chloride 111 mmol/L (98-107); Potassium 4.3 mmol/L (3.5-5.1); Sodium 143 mmol/L (136-145)
[2019-10-13 20:44] LABS: ALT (SGPT) 12 U/L (8-55); AST (SGOT) 14 U/L (5-34); Albumin 3.9 g/dL (3.5-5.0); Alkaline Phosphatase 66 U/L (40-110); Anion Gap 19 mmol/L (10-20); Bilirubin, Total 0.5 mg/dL (0.2-1.2); Calc. Creatinine Clearance 0 mL/min (70-130); Calcium 7.2 mg/dL (7.8-10.44); Estimated GFR-MDRD 14; Globulin 3.2 g/dL (2.4-3.5); Glucose 112 mg/dL (70-105); Protein, Total 7.1 g/dL (6.0-8.3)
[2019-10-13] MEDS ORDERED: Diphenoxylate HCl/Atropine Tablet ONE (20:56)
[2019-10-13] MEDS ORDERED: Sodium Chloride 0.9% 250 ML 250 ML ONE (22:39)
[2019-10-14 01:32] LABS: %Neutrophils 88.5 % (42.0-75.0)
[2019-10-14 01:33] LABS: %Basophils 0.3 % (0.0-1.0); %Lymphocytes 5.8 % (21.0-51.0); %Monocytes 5.3 % (0.0-10.0)
[2019-10-14 01:34] LABS: #Basophils 0.1 thou/uL (0.0-0.2); #Lymphocytes 1.3 thou/uL (1.20-3.40); #Monocytes 1.2 thou/uL (0.11-0.59); #Neutrophils 19.2 thou/uL (1.40-6.50)
== END 2019-10-13 23:05 | disposition short-term general hospital (02) ==
LOC: MADERS 19:26
DX: A41.9 Sepsis, unspecified organism (principal); R65.20 Severe sepsis without septic shock; N17.9 Acute kidney failure, unspecified; R19.7 Diarrhea, unspecified; R11.10 Vomiting, unspecified; I10 Essential (primary) hypertension; D64.9 Anemia, unspecified; Z79.899 Other long term (current) drug therapy
CPT/HCPCS: 80053; 83605; 85025; 87040; 87804; 96361; 96365; 96375; J1956; J2405; J3370; J7050

== ENCOUNTER 2020-02-27 08:28 | Emergency (ER) | payer MEDICARE, OTHER | END 2020-02-27 09:45 | disposition home or self-care (01) | LOC: MADERS 08:28 | DX: M27.2 Inflammatory conditions of jaws (principal); I10 Essential (primary) hypertension; Z79.899 Other long term (current) drug therapy | CPT/HCPCS: 99283 ==

== ENCOUNTER 2020-03-28 09:31 | Emergency (ER) | payer MEDICARE, OTHER ==
--- NOTE | 2020-03-28 10:00 | RAD ---
RADIOGRAPH CHEST 1 VIEW: DATE: 03/28/2020 TIME: 10:03 AM HISTORY: 39-year-old female with dyspnea COMPARISON: 04/30/2018 FINDINGS: There is a new finding of diffuse alveolar infiltrates throughout all visualized lung head, right w orse than left. Lateral costophrenic angles are not effaced. No pneumothorax. Transverse diameter of the heart has increased since prior study. IMPRESSION: Diffuse bilateral alveolar opacities throughout all visualized lung head: Severe pulmonary alveolar edema versus severe bilateral pneumonia.
[2020-03-28] MEDS ORDERED: Furosemide 40 MG/4 ML VIAL ONE (10:40)
[2020-03-28 10:44] LABS: ALT (SGPT) 37 U/L (8-55); AST (SGOT) 48 U/L (5-34); Albumin 3.7 g/dL (3.5-5.0); Alkaline Phosphatase 83 U/L (40-110); Anion Gap 24 mmol/L (10-20); BUN (Urea Nitrogen) 58 mg/dL (7.0-18.7); Bilirubin, Total 0.9 mg/dL (0.2-1.2); CK (CPK) 345 U/L (29-168); Calc. Creatinine Clearance 0 mL/min (70-130); Carbon Dioxide 16 mmol/L (22-29); Chloride 101 mmol/L (98-107); Estimated GFR-MDRD 12; Globulin 2.8 g/dL (2.4-3.5); Glucose 112 mg/dL (70-105); Lipase 16 U/L (8-78); Potassium 4.3 mmol/L (3.5-5.1); Protein, Total 6.5 g/dL (6.0-8.3); Sodium 137 mmol/L (136-145)
[2020-03-28 10:59] LABS: Calcium 5.8 mg/dL (7.8-10.44)
[2020-03-28 11:06] LABS: #Basophils 0.1 thou/uL (0.0-0.2); #Lymphocytes 0.6 thou/uL (1.20-3.40); #Monocytes 0.6 thou/uL (0.11-0.59); #Neutrophils 7.7 thou/uL (1.40-6.50); %Basophils 0.6 % (0.0-1.0); %Eosinophils 0.2 % (0.0-10.0); %Lymphocytes 7.1 % (21.0-51.0); %Monocytes 6.9 % (0.0-10.0); %Neutrophils 85.3 % (42.0-75.0); Hemoglobin 5.9 g/dL (12.0-16.0); Hypochromia MODERATE=16-30 cells (100X) (0-5/hpf); Lymphocytes 7 % (21-51); MDiff Complete? YES; Mean Corpuscular HGB CONC 31.2 g/dL (32.0-36.0); Mean Corpuscular Hemoglobin 28.9 pg (27.0-31.0); Mean Corpuscular Volume 92.6 fL (78.0-98.0); Mean Platelet Volume 8.6 fL (7.4-10.4); Monocytes 10 % (0-10); Neutrophil 83 % (42-75); Platelet Count 184 thou/uL (130-400); Platelet Morphology Comment Appears Adequate; RBC Distribution Width 16.6 % (11.5-14.5); Red Blood Cell (RBC) Count 2.05 mill/uL (4.20-5.40)
[2020-03-28] MEDS ORDERED: Nitroglycerin 2% Ointment 1 INCH/1 GM Packet ONE (12:03)
[2020-03-28] MEDS ORDERED: Acetaminophen 500 MG TAB ONE (14:35)
[2020-03-29 00:35] LABS: Actual Bicarbonate (HCO3a) 19.3 mEq/L (22-28); Base Excess (BEa) -3.7 mEq/L (-2.0 to +3.0); CO2 Tension 29.8 mmHg (35.0-45.0); Calcium, Ionized (arterial) 1.08 mmol/L (1.12-1.30); Carboxyhemoglobin (COHb) 1.5 gm% (0.0-3.0); Hemoglobin (Hb) 14.2 g/dL (12.0-16.0); Potassium - ABG Lab 4.57 mmol/L (3.70-5.30); pH, Arterial 7.43 (7.35-7.45)
[2020-03-29 00:36] LABS: O2 Tension (PaO2), arterial 43.2 mmHg (80.0-100.0); Puncture Site LRA
== END 2020-03-28 15:00 | disposition short-term general hospital (02) ==
LOC: MADERS 09:31
DX: I11.0 Hypertensive heart disease with heart failure (principal); I50.9 Heart failure, unspecified; Z20.828 Contact with and (suspected) exposure to other viral communicable diseases; E83.51 Hypocalcemia; D64.9 Anemia, unspecified; F17.210 Nicotine dependence, cigarettes, uncomplicated; Z94.0 Kidney transplant status; Z79.899 Other long term (current) drug therapy
CPT/HCPCS: 71045; 80053; 82550; 82553; 82805; 83690; 83880; 84484; 85025; 86850; 86900; 86901; 93005; 94660; 94760; 96374; J1940; U0002